=== PATIENT | male | born 1955 | race Caucasian/White ===

== ENCOUNTER → 2024-07-24 13:15 | Outpatient (REF) | payer MEDICARE, OTHER, SELFPAY | LOC: RAD 13:15 | PROVIDERS: ATTENDING PHYSICIAN Internal Medicine; FAMILY PHYSICIAN Family Medicine | DX: N18.31 Chronic kidney disease, stage 3a (principal); N28.1 Cyst of kidney, acquired | CPT/HCPCS: 76775 ==

== ENCOUNTER → 2024-09-17 06:47 | Outpatient (REF) | payer MEDICARE, OTHER, SELFPAY | LOC: RSP 06:47 | PROVIDERS: ATTENDING PHYSICIAN Family Medicine | DX: R05.3 Chronic cough (principal) | CPT/HCPCS: 94010 ==

== ENCOUNTER → 2024-09-25 17:04 | Outpatient (REF) | payer MEDICARE, OTHER, SELFPAY | LOC: RAD 17:04 | PROVIDERS: ATTENDING PHYSICIAN Family Medicine | DX: I25.10 Atherosclerotic heart disease of native coronary artery without angina pectoris (principal) | CPT/HCPCS: 75571 ==

== ENCOUNTER → 2024-10-16 16:26 | Outpatient (REF) | payer MEDICARE, OTHER, SELFPAY | LOC: PAVMRI 16:26 | PROVIDERS: ATTENDING PHYSICIAN Specialist; FAMILY PHYSICIAN Family Medicine | DX: M25.562 Pain in left knee (principal) | CPT/HCPCS: 73721 ==